=== PATIENT | male | born 1975 | race Caucasian/White ===

== ENCOUNTER 2024-04-04 15:51 | Day surgery (SDC) | payer BC ==
[2024-04-04] MEDS ORDERED: Decadron 4 MG INJ IV ONE (15:52)
[2024-04-04] MEDS ORDERED: LIDOCAINE HCL 1% AMPUL 5 ML IJ ONE (15:52)
--- NOTE | 2024-04-04 20:57 | XRAY ---
Indication: Left piriformis injection. Intraoperative fluoroscopy provided for 10 second. Single digital spot image submitted for interpretation demonstrates posterior needle tip projecting over left piriformis. Small amount of contrast injected for needle tip placement.. Correlate with intraoperative findings/report.
--- NOTE | 2024-04-05 09:10 | XRAY ---
10 seconds of fluoroscopy was used in surgery for a left piriformis injection.
== END 2024-04-04 18:47 ==
LOC: SDC-PAIN 15:51
PROVIDERS: ATTEND Psychiatry & Neurology Pain Medicine
DX: M79.18 Myalgia, other site (principal)
CPT/HCPCS: 20552; 72170; 77002; J1100; Q9966